=== PATIENT | female | born 1950 | race Caucasian/White ===

== ENCOUNTER → 2016-10-16 | Outpatient (CLI) | payer BC ==
[~2016-10-16] MED LIST: AMIT10TA6 PO; ASP81CT PO; ATOR80TA PO; CLOP75TA3 PO; COLE625T PO; FAMO40TA6 PO; FLUT1DIS2 IH; HYDR-700 PO; INSU100I30 SQ; INSU100V5 SQ; LIRA0.6P2 SC; LIRA0.6P2 SQ; METF500T PO; METO25TA60 PO; OMEG-7 PO; OMEP20TA PO; ROSU40TA PO; TRAM-25 PO; [UNRECOGNIZED DRUG - CODE] PO
--- NOTE | 2016-10-16 14:43 | Diagnostic Imaging Report ---
PROCEDURE: CT abdomen and pelvis without contrast. TECHNIQUE: Multiple contiguous axial images were obtained through the abdomen and pelvis without the use of intravenous contrast. INDICATION: Left lower quadrant pain starting 1 week ago. COMPARISON STUDY: CT scan dated 10/27/2011. FINDINGS: The lung bases are clear. The liver, spleen, pancreas, adrenal glands, and kidneys appear normal. There are no renal calculi or hydronephrosis. The gallbladder is absent. No ductal dilatation is evident. An anastomosis near the rectosigmoid junction is again identified without complication. Diverticuli are present in the colon. Mild inflammation is seen adjacent to the junction of the descending and sigmoid colon. Large abdominal wall mesh is present. No ascites, free air, or abnormal adenopathy is present. Some degenerative changes are present in the sacroiliac joints and lumbar spine. IMPRESSION: 1. There is mild diverticulitis. 2. Degenerative changes are present in the spine and sacroiliac joints. 3. The findings were called to Dr. Steen. Dictated by: Dictated on workstation # [id number]
== END ==
LOC: RAD 11:51
PROVIDERS: ATTEND Physician Assistant Medical
DX: R10.32 Left lower quadrant pain (principal)
CPT/HCPCS: 74176